=== PATIENT | male | born 1980 | race Hispanic/Latino ===

== ENCOUNTER 2021-04-01 19:35 | Emergency (ER) | payer BC ==
--- OUTSIDE RECORDS SUMMARY | 2021-04-01 19:40 | XMS REPORT | Continuity of Care Document ---
:1980 Author Organization [facility] t Address [address] [place] [address] Care Team Providers Name Role Phone CANDIE CASTILLO MD Primary Care Physician Unavailable Lynn Campbell Attending Clinician Unavailable TIMOTHY SHAW Attending Clinician Unavailable TEODORO MARLEY Attending Clinician Unavailable Sudheer GRIMES Attending Clinician Unavailable VAL Attending Clinician Unavailable KATE Attending Clinician Unavailable Enrico Moran Jr Attending Clinician Sergio English Attending Clinician Adrian Admitting Clinician Unavailable KATE Admitting Clinician Unavailable Enrico Moran Jr Admitting Clinician Payers Payer Name Policy Type Policy Number Effective Date Expiration Date S shanna [facility] [id number] 2018 [facility] 00:00:00 - [facility] [id number] [facility] [id number] [facility] [id number] 2014 [facility] Problems Condition Condition Condition Status Onset Resolution Last Treating Co mments Source Name Details Category Date Date Treatment Clinician Date EARLY SBO Diagnosis Active 2016-04-08 Memoria 8 12:36:00 l EARLY 00:00: [place] SBO 00 Active 04/08/2016 [place] INCARCERAT Diagnosis Active 2016-04-20 Memoria ED HERNIA 04-08 21:58:00 l 00:00: [place] INCARCERAT 00 ED HERNIA Active 04/08/2016 [facility] ABD PAIN; Diagnosis Active 2013-082015-01-06 [facility] HERNIA 0- 16:05:00 l ABD 00:00: [place] PAIN; 00 HERNIA Active 06/04/2014 [facility] Retention Problem Active 2016-04-13 Me moria of urine 00:53:01 l (disorder) Ajay n Retention of urine (disorder) Active Problem 04/13/2016 [facility] Hernia of Problem Active 2016-04-13 Me moria anterior 00:53:01 l abdominal Hernia Jeni nn wall of (disorder) anterior abdominal wall (disorder) Active Problem 04/13/2016 [facility] BI Diagnosis Active 2016-04-20 Mem oria INGUINAL 21:58:00 l HERNIA, W BI [place] OBST, W/O INGUINAL GANGRENE HERNIA, W OBST, W/O GANGRENE Active [place] History of Problem Resolve 2016-04-13 Memoria - d 00:53:01 l abdominal History Herm skylar hernia of - (context-d abdominal ependent hernia category) (context-d ependent category) Resolved Problem 04/13/2016 [facility] Pain Problem Active 2016-04-13 Memor ia (finding) 00:53:01 l Pain [place] (finding) Active Problem 04/13/2016 [facility] Surgery Problem Active 2016-04-13 Karlos tonya (qualifier 00:53:01 l value) Surgery [place] (qualifier value) Active Problem 04/13/2016 [facility] Allergies, Adverse Reactions, Alerts Allergy Allergy Status Severity Reaction(s) Onset Inactive Treating Comm ents Source Name Type Date Date Clinician No Known DA Active [facility] Allergie 1-13 Minoo gabriel 00:00: e 00 [facility] Social History Social Habit Start Date Stop Date Quantity Comments Source Sex Assigned At [facility] Cigarettes smoked 2017-09-27 2017-09-27 [facility] - current (pack per 00:00:00 00:00:00 [facility] day) - Reported Tobacco use and 2017-09-27 2017-09-[address] [facility] - exposure 00:00:00 00:00:00 [facility] Alcohol intake 2017-09-27 2017-09-27 Current [facility] Panchito es - 00:00:00 00:00:00 non-drinker of Medical Ce nter alcohol (finding) Social History 2016-04-08 2016-04-08 [facility] 17:44:07 17:44:07 Smoking Status Start Date Stop Date Source Light tobacco smoker 2017-09-27 00:00:00 [facility] Medications Ordered Filled Start Stop Current Ordering Indication Dosage Frequency Signature Comments Components Source Medication Medication Date Date Medication? Clinician (SIG) Name Name Dicyclomine Dicyclomine Yes Angie A Every 6 [facility]. Hcl 10 Mg Hcl 10 Mg 6-20 Sydney Mathews Hours for [facility] - Capsule Capsule 00:00: Abdominal Pa tient 00 [facility] Acetaminoph Yes See Memori a en 325 MG / 8-27 Instructio l Hydrocodone 19:59: ns, take [place] Bitartrate 00 1-2 tabls 5 MG Oral every 4 to Tablet 6 hours as [[employer] needed for 5/325] pain, # 30 tab, 0 Refill(s) Acetaminoph Yes See Memori a en 325 MG / 8-27 Instructio l Hydrocodone 19:59: ns, take He rmann Bitartrate 00 1-2 tabls 5 MG Oral every 4 to Tablet 6 hours as [[employer] needed for 5/325] pain, # 30 tab, 0 Refill(s) Acetaminoph No Notes: Karlos tonya en 325 MG / -27 (Same as: l Hydrocodone 18:45: [employer] Jeni nn Bitartrate 00 325/5) Do 5 MG Oral not exceed Tablet 4gm/day of [[employer] acetaminop 5/325] hen. Acetaminoph No Notes: Karlos tonya en 325 MG / 8-27 (Same as: l Hydrocodone 18:45: [employer] Jeni nn Bitartrate 00 325/5) Do 5 MG Oral not exceed Tablet 4gm/day of [[employer] acetaminop 5/325] hen. Flomax No Notes: Memoria - (Same As: l 22:00: Flomax) [place] "Do Not Crush" Flomax No Notes: Memoria 8- (Same As: l 22:00: Flomax) [place] "Do Not Crush" pneumococca No Notes: Karlos tonya l capsular 04-09 (Same as: l polysacchar 14:00: Pneumovax H ermann lewis type 1 23) vaccine / Refrigerat pneumococca e l capsular polysacchar lewis type 10A vaccine / pneumococca l capsular polysacchar lewis type 11A vaccine / pneumococca l capsular polysacchar lewis type 12F vaccine / pneumococca l capsular polysacchar pneumococca No Notes: Karlos tonya l capsular 04-09 (Same as: l polysacchar 14:00: Pneumovax H ermann lewis type 1 23) vaccine / Refrigerat pneumococca e l capsular polysacchar lewis type 10A vaccine / pneumococca l capsular polysacchar lewis type 11A vaccine / pneumococca l capsular polysacchar lewis type 12F vaccine / pneumococca l capsular polysacchar ceFAZolin No Notes: Memori a (SCIP) + 04-09 (Same As: l sodium 05:00: Ancef, [place] chloride 00 Kefzol) 0.9% INJ 100 mL MEDICATION WASTE Product Size: 1000 mg Product Wasted: ___ mg ceFAZolin No Notes: Memori a (SCIP) + - (Same As: l sodium 05:00: Ancef, [place] chloride 00 Kefzol) 0.9% INJ 100 mL MEDICATION WASTE Product Size: 1000 mg Product Wasted: ___ mg Famotidine No Notes: Memor ia 04-09 (Same as: l 02:00: Pepcid) [place] 00 Famotidine No Notes: Memor ia 04-09 (Same as: l 02:00: Pepcid) [place] 00 Ofirmev No Notes: Memoria 8- Infuse l 23:00: over 15 [place] 00 minutes Do not exceed 4gm/day of acetaminop hen MEDICATION WASTE Product Size: 1000 mg Product Wasted: ___ mg Ofirmev No Notes: Memoria 04-08 Infuse l 23:00: over 15 [place] 00 minutes Do not exceed 4gm/day of acetaminop hen MEDICATION WASTE Product Size: 1000 mg Product Wasted: ___ mg Ondansetron No 4 mg, Memor ia 04-08 Route: l 22:41: IVP, ONCE, Dosing Weight 116.818, kg, PRN Nausea & Vomiting, Start date: 04/08/16 17:41:00 CDT Acetaminoph No 1,000 mg, M emoria en 04-08 Route: PO, l 22:41: Drug form: TAB, ONCE, Dosing Weight 116.818, kg, PRN Pain Score 1-3, Start date: 04/08/16 17:41:00 CDT, Duration: 1 doses or times, Stop date: Limited # of times Flumazenil No 0.2 mg, Karlos tonya 04-08 Route: l 22:41: IVP, PRN, Dosing Weight 116.818, kg, PRN Benzodiaze pine Reversal, Initial dose, Start date: 04/08/16 17:41:00 CDT, Duration: 30 day, Stop date: 05/08/16 17:40:00 CDT Naloxone No 0.4 mg, Memori a 04-08 Route: l 22:41: IVP, Q2MIN, Dosing Weight 116.818, kg, PRN Narcotic Reversal, Start date: 04/08/16 17:41:00 CDT, Duration: 8 doses or times, Stop date: Limited # of times Fentanyl No 50 Memoria 04-08 microgram, l 22:41: Route: IVP, Q5Min, Dosing Weight 116.818, kg, PRN Pain Score 7-10, Start date: 04/08/16 17:41:00 CDT, Duration: 2 doses or times, Stop date: Limited # of times Hydromorpho 2016-0 No 0.5 mg, Mem oria ne 04-08 Route: l 22:41: IVP, [place] 00 Q5Min, Dosing Weight 116.818, kg, PRN Pain Score 7-10, Start date: 04/08/16 17:41:00 CDT, Duration: 4 doses or times, Stop date: Limited # of times Oxycodone 2015-0 No 10 mg, Memori a 04-08 Route: PO, l 22:41: Drug form: [place] 00 TAB, Q4H, Dosing Weight 116.818, kg, PRN Pain Score 7-10, Start date: 04/08/16 17:41:00 CDT, Duration: 30 day, Stop date: 05/08/16 17:40:00 CDT Meperidine 2015-0 No 12.5 mg, Mem oria 04-08 Route: l 22:41: IVP, [place] 00 Q30Min, Dosing Weight 116.818, kg, PRN Other -See Comment, For shivering, Start date: 04/08/16 17:41:00 CDT, Duration: 2 doses or times, Stop date: Limited # of times Ondansetron 2015-0 No 4 mg, Memor ia 04-08 Route: l 22:41: IVP, ONCE, Dosing Weight 116.818, kg, PRN Nausea & Vomiting, Start date: 04/08/16 17:41:00 CDT Acetaminoph 2016-0 No 1,000 mg, M emoria en 04-08 Route: PO, l 22:41: Drug form: [place] 00 TAB, ONCE, Dosing Weight 116.818, kg, PRN Pain Score 1-3, Start date: 04/08/16 17:41:00 CDT, Duration: 1 doses or times, Stop date: Limited # of times Flumazenil 2016-0 No 0.2 mg, Karlos tonya 04-08 Route: l 22:41: IVP, PRN, [place] 00 Dosing Weight 116.818, kg, PRN Benzodiaze pine Reversal, Initial dose, Start date: 04/08/16 17:41:00 CDT, Duration: 30 day, Stop date: 05/08/16 17:40:00 CDT Naloxone 2016-0 No 0.4 mg, Memori a 04-08 Route: l 22:41: IVP, [place] 00 Q2MIN, Dosing Weight 116.818, kg, PRN Narcotic Reversal, Start date: 04/08/16 17:41:00 CDT, Duration: 8 doses or times, Stop date: Limited # of times Fentanyl 2016-0 No 50 Memoria 8-25 microgram, l 22:41: Route: [place] 00 IVP, Q5Min, Dosing Weight 116.818, kg, PRN Pain Score 7-10, Start date: 04/08/16 17:41:00 CDT, Duration: 2 doses or times, Stop date: Limited # of times Hydromorpho 2016-0 No 0.5 mg, Mem oria ne 04-08 Route: l 22:41: IVP, [place] 00 Q5Min, Dosing Weight 116.818, kg, PRN Pain Score 7-10, Start date: 04/08/16 17:41:00 CDT, Duration: 4 doses or times, Stop date: Limited # of times Oxycodone 2016-0 No 10 mg, Memori a 04-08 Route: PO, l 22:41: Drug form: [place] 00 TAB, Q4H, Dosing Weight 116.818, kg, PRN Pain Score 7-10, Start date: 04/08/16 17:41:00 CDT, Duration: 30 day, Stop date: 05/08/16 17:40:00 CDT Meperidine 2016-0 No 12.5 mg, Mem oria 04-08 Route: l 22:41: IVP, [place] 00 Q30Min, Dosing Weight 116.818, kg, PRN Other -See Comment, For shivering, Start date: 04/08/16 17:41:00 CDT, Duration: 2 doses or times, Stop date: Limited # of times hydromorpho 2015-0 No Route: IV, Memoria ne (ANES) 04-08 Drug form: l 22:27: INJ, ONCE, Stop date: 04/08/16 17:27:00 CDT neostigmine 2015-0 No Route: IV, Memoria (ANES) 04-08 Drug form: l 22:27: INJ, ONCE, Stop date: 04/08/16 17:27:00 CDT glycopyrrol No Route: IV, Memoria ate (ANES) 04-08 Drug form: l 22:27: INJ, ONCE, Stop date: 04/08/16 17:27:00 CDT hydromorpho No Route: IV, Memoria ne (ANES) 04-08 Drug form: l 22:27: INJ, ONCE, Stop date: 04/08/16 17:27:00 CDT neostigmine No Route: IV, Memoria (ANES) 04-08 Drug form: l 22:27: INJ, ONCE, Stop date: 04/08/16 17:27:00 CDT glycopyrrol No Route: IV, Memoria ate (ANES) 04-08 Drug form: l 22:27: INJ, ONCE, Stop date: 04/08/16 17:27:00 CDT Ondansetron No Notes: Karlos tonya 04-08 (Same as: l 22:25: Zofran) [place] 00 MEDICATION WASTE Product Size: 4 mg Product Wasted: ___ mg Morphine No Notes: Memoria 04-08 (Same l 22:25: as:MORPhin [place] 00 e Sulfate) Acetaminoph No Notes: Karlos tonya en 325 MG / 04-08 (Same as: l Hydrocodone 22:25: [employer] Jeni nn Bitartrate 00 325/5) Do 5 MG Oral not exceed Tablet 4gm/day of acetaminop hen. Ondansetron No Notes: Karlos tonya 25 (Same as: l 22:25: Zofran) [place] 00 MEDICATION WASTE Product Size: 4 mg Product Wasted: ___ mg Morphine No Notes: Memoria 25 (Same l 22:25: as:MORPhin [place] 00 e Sulfate) Acetaminoph No Notes: Karlos tonya en 325 MG / 04-08 (Same as: l Hydrocodone 22:25: [employer] Jeni nn Bitartrate 00 325/5) Do 5 MG Oral not exceed Tablet 4gm/day of acetaminop hen. lidocaine No Route: IV, Me moria (ANES) 8 Drug form: l 21:38: INJ, ONCE, Stop date: 04/08/16 16:38:00 CDT midazolam No Route: IV, Me moria (ANES) 8 Drug form: l 21:38: SOLN, ONCE, Stop date: 04/08/16 16:38:00 CDT ondansetron No Route: IV, Memoria (ANES) 04-08 Drug form: l 21:38: INJ, ONCE, Stop date: 04/08/16 16:38:00 CDT acetaminoph No Route: IV, Memoria en (ANES) 04-08 Drug form: l 21:38: INJ, ONCE, Stop date: 04/08/16 16:38:00 CDT rocuronium No Route: IV, M emoria (ANES) 04-08 Drug form: l 21:38: INJ, ONCE, Stop date: 04/08/16 16:38:00 CDT cefOXitin No Route: IV, Me moria (ANES) 04-08 Drug form: l 21:38: INJ, ONCE, Stop date: 04/08/16 16:38:00 CDT fentaNYL No Route: IV, Mem oria (ANES) 04-08 Drug form: l 21:38: INJ, ONCE, Stop date: 04/08/16 16:38:00 CDT propofol No Route: IV, Mem oria (ANES) 8 Drug form: l 21:38: INJ, ONCE, Stop date: 04/08/16 16:38:00 CDT lidocaine No Route: IV, Me moria (ANES) 8- Drug form: l 21:38: INJ, ONCE, Stop date: 04/08/16 16:38:00 CDT midazolam No Route: IV, Me moria (ANES) 8 Drug form: l 21:38: SOLN, ONCE, Stop date: 04/08/16 16:38:00 CDT ondansetron No Route: IV, Memoria (ANES) 04-08 Drug form: l 21:38: INJ, ONCE, Stop date: 04/08/16 16:38:00 CDT acetaminoph No Route: IV, Memoria en (ANES) 04-08 Drug form: l 21:38: INJ, ONCE, Stop date: 04/08/16 16:38:00 CDT rocuronium No Route: IV, M emoria (ANES) 04-08 Drug form: l 21:38: INJ, ONCE, Stop date: 04/08/16 16:38:00 CDT cefOXitin No Route: IV, Me moria (ANES) 04-08 Drug form: l 21:38: INJ, ONCE, Stop date: 04/08/16 16:38:00 CDT fentaNYL No Route: IV, Mem oria (ANES) 04-08 Drug form: l 21:38: INJ, ONCE, Stop date: 04/08/16 16:38:00 CDT propofol No Route: IV, Mem oria (ANES) 04-08 Drug form: l 21:38: INJ, ONCE, Stop date: 04/08/16 16:38:00 CDT LR 1000 mL No Route: IV, M emoria INJ (ANES) 04-08 Total l 20:48: Volume: [place] 00 1,000, Start date: 04/08/16 15:48:00 CDT, Stop date: 04/08/16 16:48:00 CDT LR 1000 mL No Route: IV, M emoria INJ (ANES) 04-08 Total l 20:48: Volume: [place] 00 1,000, Start date: 04/08/16 15:48:00 CDT, Stop date: 04/08/16 16:48:00 CDT Calcium No 1,000 mL, Memor ia Chloride 04-08 Rate: 25 l 0.0014 20:40: ml/hr, [place] MEQ/ML / 00 Infuse Potassium over: 40 Chloride hr, Route: 0.004 IV, Dosing MEQ/ML / Weight Sodium 116.818 Chloride kg, Total 0.103 Volume: MEQ/ML / 1,000, Sodium Start Lactate date: 0.028 25/16 MEQ/ML 15:40:00 Injectable CDT, Solution Duration: 30 day, Stop date: 05/08/16 15:39:00 CDT Calcium No 1,000 mL, Memor ia Chloride 04-08 Rate: 25 l 0.0014 20:40: ml/hr, [place] MEQ/ML / 00 Infuse Potassium over: 40 Chloride hr, Route: 0.004 IV, Dosing MEQ/ML / Weight Sodium 116.818 Chloride kg, Total 0.103 Volume: MEQ/ML / 1,000, Sodium Start Lactate date: 0.028 25/16 MEQ/ML 15:40:00 Injectable CDT, Solution Duration: 30 day, Stop date: 05/08/16 15:39:00 CDT Cefoxitin No Notes: Memori a 8-25 (Same As: l 20:00: Mefoxin) [place] 00 MEDICATION WASTE Product Size: 2000 mg Product Wasted: ___ mg Cefoxitin No Notes: Memori a 8-25 (Same As: l 20:00: Mefoxin) [place] 00 MEDICATION WASTE Product Size: 2000 mg Product Wasted: ___ mg Acetaminoph No 1 tab, PO, Memoria en 325 MG / 8-25 Q6H, PRN l Hydrocodone 18:12: Pain Score [place] Bitartrate 00 7-10, 0 5 MG Oral Refill(s) Tablet [[employer] 5/325] Acetaminoph No 1 tab, PO, Memoria en 325 MG / 8-25 Q6H, PRN l Hydrocodone 18:12: Pain Score [place] Bitartrate 00 7-10, 0 5 MG Oral Refill(s) Tablet [[employer] 5/325] Sodium No 1,000 mL, Memori a Chloride 8-25 Rate: 125 l 0.154 17:38: ml/hr, [place] MEQ/ML 00 Infuse Injectable over: 8 Solution hr, Route: IV, Dosing Weight 108.182 kg, Total Volume: 1,000, Start date: 04/08/16 12:38:00 CDT, Duration: 30 day, Stop date: 05/08/16 12:37:00 CDT Ondansetron 2016-0 No Notes: Karlos tonya 8-25 (Same as: l 17:38: Zofran) [place] 00 MEDICATION WASTE Product Size: 4 mg Product Wasted: ___ mg Saline 2015- No Notes: Memoria Flush 0.9% 8-25 Same as: l 17:38: BD [place] 00 Posiflush Sterile Dilaudid 2016-0 No 0.5 mg, Memori a 8-25 0.5 mL, l 17:38: Route: [place] 00 IVP, Drug form: INJ, Q3H, Dosing Weight 108.182, kg, PRN Pain Score 7-10, Start date: 04/08/16 12:38:00 CDT, Duration: 30 day, Stop date: 05/08/16 12:37:00 CDT Sodium 2016-0 No 1,000 mL, Memori a Chloride 8-25 Rate: 125 l 0.154 17:38: ml/hr, [place] MEQ/ML 00 Infuse Injectable over: 8 Solution hr, Route: IV, Dosing Weight 108.182 kg, Total Volume: 1,000, Start date: 04/08/16 12:38:00 CDT, Duration: 30 day, Stop date: 05/08/16 12:37:00 CDT Ondansetron 2015-0 No Notes: Karlos tonya 8-25 (Same as: l 17:38: Anahian) [place] 00 MEDICATION WASTE Product Size: 4 mg Product Wasted: ___ mg Saline 2015-0 No Notes: Memoria Flush 0.9% 8-25 Same as: l 17:38: BD [place] 00 Posiflush Sterile Dilaudid 2016-0 No 0.5 mg, Memori a 8-25 0.5 mL, l 17:38: Route: [place] 00 IVP, Drug form: INJ, Q3H, Dosing Weight 108.182, kg, PRN Pain Score 7-10, Start date: 04/08/16 12:38:00 CDT, Duration: 30 day, Stop date: 05/08/16 12:37:00 CDT Ibuprofen Ibuprofen Yes [address] [facility] - 200 Mg Tab 200 Mg Tab [facility] Immunizations Ordered Immunization Filled Immunization Date Status Commen ts Source Name Name pneumococcal 2016-04-09 Completed [facility] 23-valent vaccine 23:34:00 [place] pneumococcal 2016-04-09 Completed [facility] 23-valent vaccine 23:34:00 [place] Vital Signs Vital Name Observation Time Observation Value Comments Source Respitory Rate 2016-04-10 17:08:00 Memori al [place] Systolic (mm Hg) 2016-04-10 17:08:00 Karlos rial [place] Diastolic (mm Hg) 2016-04-10 17:08:00 Mem orial [place] Heart Rate 2016-04-10 17:08:00 [facility] [place] Temperature Oral (F) 2016-04-10 17:08:00 98.8 F [facility] [place] Heart Rate 2016-04-10 13:12:00 [facility] [place] Systolic (mm Hg) 2016-04-10 13:12:00 Karlos rial [place] Diastolic (mm Hg) 2016-04-10 13:12:00 Mem orial [place] Temperature Oral (F) 2016-04-10 13:12:00 98.6 F [facility] [place] Respitory Rate 2016-04-10 12:25:00 Memori al [place] Heart Rate 2016-04-10 04:37:00 [facility] [place] Systolic (mm Hg) 2016-04-10 04:37:00 Karlos rial [place] Diastolic (mm Hg) 2016-04-10 04:37:00 Mem orial [place] Temperature Oral (F) 2016-04-10 04:37:00 98.7 F [facility] [place] Respitory Rate 2016-04-10 01:20:00 Memori al [place] Height 2016-04-08 17:46:00 187.96 cm [facility] [place] Weight 2016-04-08 17:46:00 [facility] [place] BMI Calculated 2016-04-08 17:46:00 Memori al [place] Procedures Procedure Date / Time Performed Performing Clinician Sourc e RPR S/N/AX/GEN/TRNK 2019-01-05 00:00:[address] [facility] - 2.5CM/< [facility] Ankle fusion [facility] Repair of recurrent [facility] umbilical hernia Plan of Care Planned Activity Planned Date Details Comments Source Future Scheduled 2028-08-03 DTAP/TDAP/TD VACCINES [facility] - Test 00:00:00 (2 - Td) [code = Medical [facility] ter DTAP/TDAP/TD VACCINES (2 - Td)] Future Scheduled 2020-08-[address] [facility] - Test 00:00:00 (12+) [code = [facility] DEPRESSION SCREENING (12+)] Future Scheduled 2020-04-[address] [facility] - Test 00:00:00 (#1) [code = [facility] INFLUENZA VACCINE (#1)] Future Scheduled [address] [facility] - Test 00:00:00 (procedure) [code = [facility] [id number]] Future Scheduled 2000 HEPATITIS C SCREENING [facility] - Test 00:00:00 [code = HEPATITIS C [facility] SCREENING] Encounters Start End Encounter Admission Attending Care Care Encounter Source Date/Time Date/Time Type Type Clinicians Facility Department ID 2021-03-24 2021-03-24 [id number] [facility] 15:25:00 15:25:00 [id number] [facility] 2019-03-25 2019-03-25 [facility] [id number] [facility] 21:06:00 23:10:00 Emergency TIMOTHY 03 [facility] - Room Patient s [facility] 2019-02-01 2019-02-01 [facility] [id number] 13:23:00 15:57:00 Emergency ANGIE 18 [facility] - Room Patient s [facility] 2019-01-13 2019-01-13 [facility]ed [facility] [id number] 21:30:00 23:34:00 Emergency LANCE 62 [facility] - Room Patient s [facility] 2019-01-05 2019-01-06 Departed [facility] [id number] 23:39:00 00:47:00 Emergency 79 [facility] - Room Patient s [facility] 2018-01-23 2018-01-23 Departed [facility] [id number] [facility] St. 17:52:00 20:25:00 Emergency 52 [facility] - Room [facility] 2016-04-09 2016-04-[address] [facility] [id number] Memoria 10:30:00 20:25:00 r [place] 38 [facility] 2016-04-09 2016-04-[address] [facility] [id number] Memoria 10:30:00 20:25:00 r [place] 38 [facility] 2016-04-09 2016-04-10 Outpatient ROBERT Moran [facility] [id number] 05:30:00 15:25:00 Willem Weston Andreea 2014-06-06 2014-06-[address] [facility] [id number] Memoria 22:04:00 04:59:00 r [place] 00 [facility] 2014-06-06 2014-06-07 Outpatient [facility] [id number] Memoria 22:04:00 04:59:00 r [place] 00 [facility] 2014-06-06 2014-06-06 Outpatient English, [id number] 17:04:00 23:59:00 Dhruvil [id number] Rashmikant [id number] Results Test Description Test Time Test Comments Results Result Comments Source SURGICAL SPECIMENS 2021-03-25 16:03:00 Test Item Value Reference Range Interpretation Comme nts SURGICAL RUN SPECIMENS DATE: 03/25/21 [facility] - LAB PAGE 1 RUN (test code TIME: 1603 Specimen Inquiry RUN USER: INTERFACE = SURG) WHITNEY ENT: MAGDALENA ROMERO LOC: [place] U #: [id number] AGE/SX: 40/M ROOM: RE03/24/21REG DR: Lynn Campbell MD : 82 BED : DIS: STATUS: REG REF TLOC: SPEC #: [id number] CREDIT CONTROL OFFICER: 03/24/21 [facility]: [id number] WHIT: SUBM DR: Lynn Campbell MD ENTERED: 03/24/21 SP TYPE: KATHERINE BENITEZ OTHR DR: ORDERED: PATHGM3, PATH SPEC, H E STAI N TISSUES: A. LIPOMA - Multiple li pomas [right forearm,abdomen,back] CLINICAL HISTORY Diagnosis/Clinical Data: Lan k lipoma, abdominal lipomas, right forearm lipomas Operative Procedure: Excision lipomas, back, abdominal wall, right forearm FINAL DIAGNOSIS Soft tissue, right FA, abdominal, back, excision: Fragments of angiolipoma Electronically signed by: Abebe Judd MD GROSS DESCRIPTION Received in formalin labeled "multiple lipomas (right FA, abdominal , back)" is a 5.0 x 5.0 x 1.2 cm aggregate of ivan-yellow, encapsulated adipose tissu e fragments. The cut surfaces are ivan-yellow, glistening, and homogenous. Formulation Scientist sections are submitted in A1-A3. TR 03/24/2021 05:59 PM MICROSCOPIC DESCRIPTION S ections show fragments of well-circumscribed soft tissue mass is composed of mature adipocy ivan and a capillary vascular proliferation, compatible with angiolipoma. No malignancy is identified. Signed SIGNATURE ON FILE Abebe Judd MD 03/25/21 1603 END OF REPORT SURGICAL [id number] 14:46:00 RUN DATE: 04/28/20 [facility] PAGE 1 RUN TIME: 1447 Specimen Inquiry RUN USER: INTERFACE PATIENT: MAGDALENA ROMERO LOC: ILE[place] U #: [id number] AGE/SX: 40/M ROOM: RE04/25/20REG DR: Lynn Campbell MD : 82 BED: DIS: STATUS: REG REF TLOC: SPEC #: [id number] RECD: 04/25/20 STATUS: [place] [facility] #: [id number] WHIT: 04/25/20-[address]: Lynn Campbell MD ENTERED: 04/25/20 SP TYPE: SURG OTHR DR: ORDERED: PATHGM3, PATH SPEC, H E STAIN TISSUES: A. LIPOMA - Back and left arm lipomas CLINICAL HISTORY Operative Procedure: Excision of multiple left side lipomas FINAL DIAGNOSIS Soft tissues, back and left arm, multiple excisions: Multiple lipomas and angiolipomas. Electronically signed by: Luis Daniel Contreras MD 04/28/2020 GROSS DESCRIPTION Received in formalin labeled "back and left arm lipomas" are seven unoriented portions of ivan-yellow, encapsulated adiposetissue ranging from 1.7-2.5 x 1.5 x 0.5 cm in greatest dimension. The cut surfaces are ivan-yellow and glistening. Formulation Scientist sections are submitted in A1-A3. TR 04/25/2020 06:24 PM MICROSCOPIC DESCRIPTION Sections show multiple lipomas and angiolipomas. No distinct evidence of malignancy is identified. Signed SIGNATURE ON FILE Luis Daniel Contreras MD 04/28/20 1446 END OF REPORT - CT ABD PELVIS W/O [id number] 04:46:00 Name: MAGDALENA ROMERO [facility] : 1980 Age/S: 39 / M [address] [facility] Unit #: [id number] Loc: Domonique Lemus [address] Phys: Elizabeth Vincent MD Acct: [id number] Dis Date: Status: REG ER PHONE #: [phone] Exam Date: 04/22/2019426 FAX #: [phone] Reason: left sided abd pain EXAMS: CPTCODE: [id number] CT ABD PELVIS W/O CONT 56459 AFTER HOURSSERVICE ON: 04/22/2019 4:[address] Scan of the Abdomen and Pelvis Without Contrast Location Code M12 History: left sided abd pain Technique: Axial and reconstructed coronal scans were performed on a helical scanner pre oral and IV contrast. Study is limited secondary to lack of oral and IV contrast. One or more of the following dose reduction techniques were used: Automated exposure control, adjustment of the mA and/or kV according to patient size, and/or utilization of iterative reconstruction technique. Findings: LIVER: No significant findings. GALLBLADDER/BILIARY: Gallbladder is surgically absent. PANCREAS: No significant findings. SPLEEN: There ispersistent splenomegaly compared to prior CT of 08/27/2015. ADRENALS: No significant findings. KIDNEYS: No nephrolithiasis or hydronephrosis. BLADDER: No significant findings. GASTROINTESTINAL: Diverticular changes noted in the sigmoid colon without evidence of diverticulitis. Small bowel loops are unremarkable. There is no bowel obstruction or free air.The appendix is not visualized. The appendix is unremarkable. . IMPRESSION: No acute findings in the abdomen or pelvis. Stable splenomegaly at 0446 Reported and signed by: Marcos Vargas M.D. PAGE 1 Signed Report (CONTINUED) Name: MAGDALENA ROMERO [facility] : 1980 Age/S: 39 / M [address] Unit #: [id number] Loc: Domonique Lemus [address] Phys: Elizabeth Vincent MD Acct: [id number] Dis Date: Status: REG ER PHONE #: [phone] Exam Date: 04/22/2019426 FAX #: [phone] Reason: left sided abd pain EXAMS: CPT CODE: [id number] CT ABD PELVIS W/O CONT 35710 <Continued> CC: Candie Castillo Technologist:SURINDER PERRIN RT(R),RDMS,CT CTDI: DLP: Trnscb Date/Time: 04/22/2019 (445) [id number] OrigPrint D/T: S: 04/22/2019 (044) PAGE 2 Signed ReportURINALYSIS [id number] 04:22:00 Test Item Value Reference Range Interpretation Comments UA COLOR (test code = YELLOW YELLOW COLU) UA APPEARANCE (test code CLEAR CLEAR = APPU) UA GLUCOSE DIPSTICK (test norm mg/dL NEGATIVE code = DGLUU) UA BILIRUBIN DIPSTICK NEGATIVE mg/dL NEGATIVE (test code = BILU) UA KETONE DIPSTICK (test neg mg/dL NEGATIVE code = KETU) UA SPECIFIC GRAVITY (test 1.020 1.001-1.035 code = SGU) UA BLOOD DIPSTICK (test 25 (1+) Navin/uL NEGATIVE A code = ALEX) UA PH DIPSTICK (test code 6.0 5.0-8.0 = MATTHEW) UA PROTEIN DIPSTICK (test 30 (1+) mg/dL Neg-15 A code = PROU) UA UROBILINIOGEN DIPSTICK 4 mg/dL (2+) mg/dL 0.0-0.2 A (test code = URO) UA NITRITE DIPSTICK (test NEGATIVE NEGATIVE code = CONCEPCIÓN) UA LEUKOCYTE ESTERASE 25 Luz Marina/uL (Trace) uL NEGATIVE A DIPSTICK (test code = LEUU) UA WBC (test code = WBCU) 0-5 per HPF 0-5 UA RBC (test code = RBCU) 0-3 per HPF 0-5 UA EPITHELIAL CELLS (test Rare (0-1/hpf) per Few code = EPIU) HPF UA BACTERIA (test code = FEW per HPF NONE BACU) UA MUCUS (test code = FEW per LPF NONE-FEW MUCU) Urine Source? Clean CatchDRUGS OF ABUSE SCREEN [id number] 04:22:00 Test Item Value Reference Range Interpretation Comments URN COCAINE (test code = COCAURN) NEGATIVE NEGATIVE URN CANNABINOIDS (test code = NEGATIVE NEGATIVE CANNABURN) URN AMPHETAMINE (test code = NEGATIVE NEGATIVE AMPHETURN) URN BARBITURATE (test code = NEGATIVE NEGATIVE BARBITURN) URN BENZODIAZEPINE (test code = NEGATIVE NEGATIVE BENZOURN) URN OPIATES (test code = OPIATURN) NEGATIVE NEGATIVE URN PHENCYCLIDINE (PCP) (test code = NEGATIVE NEGATIVE PHENCURN) Urine Source? Clean CatchBASIC METABOLIC [id number] 04:22:00 Test Item Value Reference Range Interpretation Comments SODIUM (test code = 142 mmol/L 136-145 N NA) POTASSIUM (test code = 3.9 mmol/L 3.5-5.1 N K) CHLORIDE (test code = 106 mmol/L 101-109 N CL) CARBON DIOXIDE (test 28.9 mmol/L 21-32 N code = CO2) ANION GAP (test code = 11 mmol/L 10-20 N GAP) GLUCOSE (test code = 107 mg/dL 74-106 H GLU) BLOOD UREA NITROGEN 16 mg/dL 3-21 N (test code = BUN) GLOMERULAR FILTRATION > 60 mL/min >=60 Estima laney GFR by RATE (test code = GFR) using Modified MDRD formula.Chronic kidney disease is defined as ei er kidney damageor GFR <60 mL/min/1.73 m2 for >3 months. CREATININE (test code 0.95 mg/dL 0.55-1.3 N = CREAT) BUN/CREATININE RATIO 16.8 10-20 N (test code = BUN/CREA) CALCIUM (test code = 8.7 mg/dL 8.4-10.2 N CA) HEPATIC FUNCTION [id number] 04:22:00 Test Item Value Reference Range Interpretation Comments TOTAL PROTEIN (test 7.5 g/dL 6.5-8.4 N code = PROT) ALBUMIN (test code = 4.3 g/dL 3.4-4.8 N ALB) GLOBULIN (test code = 3.2 G/DL 1-10 N GLOB) ALBUMIN/GLOBULIN RATIO 1.34 RATIO 0.75-1.50 N (test code = A/G) BILIRUBIN TOTAL (test 0.50 mg/dL 0.0-1.0 N code = BILT) BILIRUBIN DIRECT (test 0.10 mg/dL 0.0-0.30 N code = BILD) SGOT/AST (test code = 41 U/L 6-32 H AST) SGPT/ALT (test code = 63 U/L 12-78 N Note: Change in ALT) REFERENCE RANGE due to new reagent method. ALKALINE PHOSPHATASE 133 U/L 38-126 H TOTAL (test code = ALKP) [id number] 04:22:00 Test Item Value Reference Range Interpretation Comments LIPASE (test code = LIP) 142 U/L 128-270 N BASIC METABOLIC [id number] 04:21:00 Test Item Value Reference Range Interpretation Comments SODIUM (test code = 142 mmol/L 136-145 N NA) POTASSIUM (test code = 3.9 mmol/L 3.5-5.1 N K) CHLORIDE (test code = 106 mmol/L 101-109 N CL) CARBON DIOXIDE (test 28.9 mmol/L 21-32 N code = CO2) ANION GAP (test code = 11 mmol/L 10-20 N GAP) GLUCOSE (test code = 107 mg/dL 74-106 H GLU) BLOOD UREA NITROGEN 16 mg/dL 3-21 N (test code = BUN) GLOMERULAR FILTRATION > 60 mL/min >=60 Estima laney GFR by RATE (test code = GFR) using Modified MDRD formula.Chronic kidney disease is defined as [facility] kidney damageor GFR <60 mL/min/1.73 m2 for >3 months. CREATININE (test code 0.95 mg/dL 0.55-1.3 N = CREAT) BUN/CREATININE RATIO 16.8 10-20 N (test code = BUN/CREA) CALCIUM (test code = 8.7 mg/dL 8.4-10.2 N CA) HEPATIC FUNCTION [id number] 04:21:00 Test Item Value Reference Range Interpretation Comments TOTAL PROTEIN (test code = PROT) gram/dL 6.4-8.2 ALBUMIN (test code = ALB) g/dL 3.4-5.0 GLOBULIN (test code = GLOB) g/dL 2.7-4.2 ALBUMIN/GLOBULIN RATIO (test code = 0.75-1.50 A/G) BILIRUBIN TOTAL (test code = BILT) mg/dL 0.2-1.2 BILIRUBIN DIRECT (test code = BILD) mg/dL 0.0-0.20 SGOT/AST (test code = AST) IUnit/L 15-37 SGPT/ALT (test code = ALT) U/L 10-69 ALKALINE PHOSPHATASE TOTAL (test IUnit/L 45-117 code = ALKP) [id number] 04:21:00 Test Item Value Reference Range Interpretation Comments LIPASE (test code = LIP) Unit/L 144-286 URINALYSIS [id number] 04:13:00 Test Item Value Reference Range Interpretation Comments UA COLOR (test code = YELLOW YELLOW COLU) UA APPEARANCE (test code CLEAR CLEAR = APPU) UA GLUCOSE DIPSTICK (test norm mg/dL NEGATIVE code = DGLUU) UA BILIRUBIN DIPSTICK NEGATIVE mg/dL NEGATIVE (test code = BILU) UA KETONE DIPSTICK (test neg mg/dL NEGATIVE code = KETU) UA SPECIFIC GRAVITY (test 1.020 1.001-1.035 code = SGU) UA BLOOD DIPSTICK (test 25 (1+) Navin/uL NEGATIVE A code = ALEX) UA PH DIPSTICK (test code 6.0 5.0-8.0 = MATTHEW) UA PROTEIN DIPSTICK (test 30 (1+) mg/dL Neg-15 A code = PROU) UA UROBILINIOGEN DIPSTICK 4 mg/dL (2+) mg/dL 0.0-0.2 A (test code = URO) UA NITRITE DIPSTICK (test NEGATIVE NEGATIVE code = CONCEPCIÓN) UA LEUKOCYTE ESTERASE 25 Luz Marina/uL (Trace) uL NEGATIVE A DIPSTICK (test code = LEUU) UA WBC (test code = WBCU) 0-5 per HPF 0-5 UA RBC (test code = RBCU) 0-3 per HPF 0-5 UA EPITHELIAL CELLS (test Rare (0-1/hpf) per Few code = EPIU) HPF UA BACTERIA (test code = FEW per HPF NONE BACU) UA MUCUS (test code = FEW per LPF NONE-FEW MUCU) Urine Source? Clean CatchDRUGS OF ABUSE SCREEN [id number] 04:13:00 Test Item Value Reference Range Interpretation Comments URN COCAINE (test code = COCAURN) NEGATIVE URN CANNABINOIDS (test code = NEGATIVE CANNABURN) URN AMPHETAMINE (test code = AMPHETURN) NEGATIVE URN BARBITURATE (test code = BARBITURN) NEGATIVE URN BENZODIAZEPINE (test code = NEGATIVE BENZOURN) URN OPIATES (test code = OPIATURN) NEGATIVE URN PHENCYCLIDINE (PCP) (test code = NEGATIVE PHENCURN) Urine Source? Clean CatchCBC W/O [id number] 04:10:00 Test Item Value Reference Range Interpretation Comments WHITE BLOOD CELL (test code = 5.9 K/mm3 4.5-12.5 N WBC) RED BLOOD CELL (test code = 4.96 mill/mm3 4.0-5.8 N RBC) HEMOGLOBIN (test code = HGB) 14.8 gram/dL 13.0-17.5 N HEMATOCRIT (test code = HCT) 41.6 % 42.0-52.0 L MEAN CELL VOLUME (test code = 83.9 fL 80-98 N MCV) MEAN CELL HGB (test code = MCH) 29.8 picogram 27.0-33.0 N MEAN CELL HGB CONCETRATION 35.6 gram/dL 33.0-36.0 N (test code = MCHC) RED CELL DISTRIBUTION WIDTH 12.2 % 11.6-16.2 N (test code = RDW) RED CELL DISTRIBUTION WIDTH SD 37.9 fL 37.0-51.0 N (test code = RDW-SD) PLATELET COUNT (test code = 138 K/mm3 150-450 L PLT) MEAN PLATELET VOLUME (test code 9.9 fL 6.7-11.0 N = MPV) ABDOMEN ACUTE SERIES W/PA [id number] 22:51:00 [place] [address] Patient Name: MAGDALENA ROMERO MR #: [id number] : 1980 Age/Sex: 38/M Req #: [id number] Adm Physician: Ordered by: TIMOTHY SHAW MD Report #: [id number] Location: ER Room/Bed: Procedure: [id number] DX/ABDOMEN ACUTE SERIES W/PA CXR Exam Date: 03/25/19 Exam Time: 2129 REPORT STATUS: Signed EXAM: ABDOMEN ACUTE SERIES W/PA CXR, DATE: 03/25/2019 9:30 PM INDICATION: Left-sided abdominal pain. COMPARISON: None FINDINGS: LINES/TUBES: None BOWEL PATTERN: No evidence for obstruction. Moderate volume of stool throughout the colon and rectum. SOFT TISSUES: Cholecystectomy clips. LUNG BASES: Not included BONES: No acute findings. IMPRESSION: Findings may reflect constipation the proper clin ical setting. Signed by: Dr. Flip Wheatley M.D. on 03/25/2019 10:53 PM Dictated By: NAGA WHEATLEY MD, MD 52 Transcribed By: IRVIN on 03/25/192252 COPY TO: TIMOTHY SHAW MDCreatine Kinase MB 2019-03-25 22:03:00 Test Item Value Reference Range Interpretation Comments Creatine Kinase MB (test code = 2.60 0-5.0 22557-0) [facility]Troponin [id number] 22:03:00 Test Item Value Reference Range Interpretation Comments Troponin I (test code = DGK6530) < 0.001 0-0.300 [facility] AustinAmylase [id number] 22:03:00 Test Item Value Reference Range Interpretation Comments Amylase Level (test code = 1798-8) 34 25-125 [facility] AustinLipase2019-08-11 22:03:00 Test Item Value Reference Range Interpretation Comments Lipase (test code = 3040-3) 35 8-78 [facility] AustinUrine [id number] 21:56:00 Test Item Value Reference Range Interpretation Comments Urine WBC (test code = 5821-4) 0-5 0-5 [facility] AustinU[facility] [id number] 21:56:00 Test Item Value Reference Range Interpretation Comments Urine RBC (test code = 00212-1) 0-5 0-5 [facility] AustinU[facility] [id number] 21:56:00 Test Item Value Reference Range Interpretation Comments Urine Bacteria (test code = 26359-1) RARE NONE [facility] AustinU[facility] Epithelial [id number] 21:56:00 Test Item Value Reference Range Interpretation Comments Urine Epithelial Cells (test code = RARE NONE 45931-1) [facility] AustinU[facility] [id number] 21:54:00 Test Item Value Reference Range Interpretation Comments Urine Color (test code = 5778-6) YELLOW YELLOW [facility] AustinU[facility] [id number] 21:54:00 Test Item Value Reference Range Interpretation Comments Urine Clarity (test code = 57420-0) CLEAR CLEAR [facility] AustinUrine Specific [id number] 21:54:00 Test Item Value Reference Range Interpretation Comments Urine Specific Pitkin (test code = 1.020 1.010-1.025 5811-5) [facility] AustinUrine [id number] 21:54:00 Test Item Value Reference Range Interpretation Comments Urine pH (test code = 33048-3) 6 5-7 [facility] AustinU[facility] Leukocyte [id number] 21:54:00 Test Item Value Reference Range Interpretation Comments Urine Leukocyte Esterase (test code NEGATIVE NEGATIVE = 89701-8) [facility] AustinU[facility] [id number] 21:54:00 Test Item Value Reference Range Interpretation Comments Urine Nitrite (test code = 90624-6) NEGATIVE NEGATIVE [facility] AustinUrine [id number] 21:54:00 Test Item Value Reference Range Interpretation Comments Urine Protein (test code = 47380-2) NEGATIVE NEGATIVE [facility] AustinUrine Glucose (UA)2019-03-25 21:54:00 Test Item Value Reference Range Interpretation Comments Urine Glucose (UA) (test code = NEGATIVE NEGATIVE 15165-0) [facility] AustinU[facility] [id number] 21:54:00 Test Item Value Reference Range Interpretation Comments Urine Ketones (test code = 87612-6) NEGATIVE NEGATIVE [facility] AustinU[facility] [id number] 21:54:00 Test Item Value Reference Range Interpretation Comments Urine Urobilinogen (test code = 0.2 0.2-1 05003-6) [facility] AustinU[facility] [id number] 21:54:00 Test Item Value Reference Range Interpretation Comments Urine Bilirubin (test code = 1977-8) NEGATIVE NEGATIVE [facility] AustinUrine [id number] 21:54:00 Test Item Value Reference Range Interpretation Comments Urine Blood (test code = 48596-5) 1+ NEGATIVE [facility] AustinWhite Blood [id number] 21:53:00 Test Item Value Reference Range Interpretation Comments White Blood Count (test code = 6690-2) 5.28 4.8-10.8 [facility] AustinRed Blood [id number] 21:53:00 Test Item Value Reference Range Interpretation Comments Red Blood Count (test code = 789-8) 4.76 4.3-5.7 [facility] AustinHemoglobin2019-08-11 21:53:00 Test Item Value Reference Range Interpretation Comments Hemoglobin (test code = 73560-9) 14.2 14.0-18.0 [facility] AustinHematocrit2019-08-11 21:53:00 Test Item Value Reference Range Interpretation Comments Hematocrit (test code = 4544-3) 40.2 38.2-49.6 [facility] AustinMean Corpuscular [id number] 21:53:00 Test Item Value Reference Range Interpretation Comments Mean Corpuscular Volume (test code = 84.5 81-99 787-2) [facility] AustinMean Corpuscular [id number] 21:53:00 Test Item Value Reference Range Interpretation Comments Mean Corpuscular Hemoglobin (test code 29.8 28-32 = 785-6) [facility] AustinMean Corpuscular Hemoglobin Concent 2019-03-25 21:53:00 Test Item Value Reference Range Interpretation Comments Mean Corpuscular Hemoglobin Concent 35.3 31-35 H (test code = 786-4) [facility] AustinRed Cell Distribution [id number] 21:53:00 Test Item Value Reference Range Interpretation Comments Red Cell Distribution Width (test code 12.4 11.7-14.4 = 25901-3) [facility] AustinPlatelet [id number] 21:53:00 Test Item Value Reference Range Interpretation Comments Platelet Count (test code = 777-3) 137 140-360 L [facility] AustinNeutrophils (%) (Auto)2019-03-25 21:53:00 Test Item Value Reference Range Interpretation Comments Neutrophils (%) (Auto) (test code = 72.8 38.7-80.0 38954-1) [facility] AustinLymphocytes (%) (Auto)2019-03-25 21:53:00 Test Item Value Reference Range Interpretation Comments Lymphocytes (%) (Auto) (test code = 17.6 18.0-39.1 L 736-9) [facility] AustinMonocytes (%) (Auto)2019-03-25 21:53:00 Test Item Value Reference Range Interpretation Comments Monocytes (%) (Auto) (test code = 5.9 4.4-11.3 5905-5) [facility] AustinEosinophils (%) (Auto)2019-03-25 21:53:00 Test Item Value Reference Range Interpretation Comments Eosinophils (%) (Auto) (test code = 2.7 0.0-6.0 713-8) [facility] AustinBasophils (%) (Auto)2019-03-25 21:53:00 Test Item Value Reference Range Interpretation Comments Basophils (%) (Auto) (test code = 0.6 0.0-1.0 706-2) [facility] AustinIM GRANULOCYTES %2019-03-25 21:53:00 Test Item Value Reference Range Interpretation Comments IM GRANULOCYTES % (test code = IM 0.4 0.0-1.0 GRANULOCYTES %) [facility] AustinNeutrophils # (Auto)2019-03-25 21:53:00 Test Item Value Reference Range Interpretation Comments Neutrophils # (Auto) (test code = 3.9 2.1-6.9 751-8) [facility] AustinLymphocytes # (Auto)2019-03-25 21:53:00 Test Item Value Reference Range Interpretation Comments Lymphocytes # (Auto) (test code = 0.9 1.0-3.2 L 55096-5) [facility] AustinMonocytes # (Auto)2019-03-25 21:53:00 Test Item Value Reference Range Interpretation Comments Monocytes # (Auto) (test code = 742-7) 0.3 0.2-0.8 [facility] AustinEosinophils # (Auto)2019-03-25 21:53:00 Test Item Value Reference Range Interpretation Comments Eosinophils # (Auto) (test code = 0.1 0.0-0.4 711-2) [facility] AustinBasophils # (Auto)2019-03-25 21:53:00 Test Item Value Reference Range Interpretation Comments Basophils # (Auto) (test code = 704-7) 0.0 0.0-0.1 [facility] AustinAbsolute Immature Granulocyte (auto 2019-03-25 21:53:00 Test Item Value Reference Range Interpretation Comments Absolute Immature Granulocyte (auto 0.02 0-0.1 (test code = Absolute Immature Granulocyte (auto) [facility] [id number] 21:53:00 Test Item Value Reference Range Interpretation Comments Sodium Level (test code = 2951-2) 140 136-145 [facility] AustinPotassium [id number] 21:53:00 Test Item Value Reference Range Interpretation Comments Potassium Level (test code = 2823-3) 3.9 3.5-5.1 [facility] AustinChloride [id number] 21:53:00 Test Item Value Reference Range Interpretation Comments Chloride Level (test code = 2075-0) 108 98-107 H [facility] AustinCarbon Dioxide [id number] 21:53:00 Test Item Value Reference Range Interpretation Comments Carbon Dioxide Level (test code = 22 -29 2027-9) [facility] AustinAnion [id number] 21:53:00 Test Item Value Reference Range Interpretation Comments Anion Gap (test code = 16825-6) 13.9 8-16 [facility] AustinBlood Urea [id number] 21:53:00 Test Item Value Reference Range Interpretation Comments Blood Urea Nitrogen (test code = 14 03-09 3094-0) [facility] AustinCreatinine2019-08-11 21:53:00 Test Item Value Reference Range Interpretation Comments Creatinine (test code = 2160-0) 0.94 0.72-1.25 [facility] AustinBUN/Creatinine [id number] 21:53:00 Test Item Value Reference Range Interpretation Comments BUN/Creatinine Ratio (test code = 15 02-06 3097-3) [facility] AustinEstimat Glomerular Filtration Rate 2019-03-25 21:53:00 Test Item Value Reference Range Interpretation Comments Estimat Glomerular Filtration Rate > 60 >60 (test code = 330801346) Ranges were taken from the National Kidney Disease Education Program and the National Kidney Foundation literature.Reference ranges:60 or greater: Anrwwz72- 59 (for 3 consecutive months): Chronic kidneydisease 15 or less: Kidney failure [facility] AustinGlucose [id number] 21:53:00 Test Item Value Reference Range Interpretation Comments Glucose Level (test code = NND2366) 114 74-118 [facility] AustinCalcium [id number] 21:53:00 Test Item Value Reference Range Interpretation Comments Calcium Level (test code = 72655-2) 9.3 8.4-10.2 [facility] AustinTotal [id number] 21:53:00 Test Item Value Reference Range Interpretation Comments Total Bilirubin (test code = 1975-2) 0.5 0.2-1.2 [facility] AustinAspartate Amino Transf (AST/SGOT) 2019-03-25 21:53:00 Test Item Value Reference Range Interpretation Comments Aspartate Amino Transf (AST/SGOT) (test 30 5-34 code = Aspartate Amino Transf (AST/SGOT)) [facility] AustinAlanine Aminotransferase (ALT/SGPT) 2019-03-25 21:53:00 Test Item Value Reference Range Interpretation Comments Alanine Aminotransferase (ALT/SGPT) 42 0-55 (test code = 1742-6) [facility] AustinTotal Pqrglas2011-07-95 21:53:00 Test Item Value Reference Range Interpretation Comments Total Protein (test code = 2885-2) 7.0 6.5-8.1 [facility] AustinAlbumin2019-08-11 21:53:00 Test Item Value Reference Range Interpretation Comments Albumin (test code = 1751-7) 4.2 3.5-5.0 [facility] AustinGlobulin2019-08-11 21:53:00 Test Item Value Reference Range Interpretation Comments Globulin (test code = 88517-2) 2.8 2.3-3.5 [facility] AustinAlbumin/Globulin [id number] 21:53:00 Test Item Value Reference Range Interpretation Comments Albumin/Globulin Ratio (test code = 1.5 0.8-2.0 1759-0) [facility] AustinAlkaline Emdngsvyfwh0811-94-15 21:53:00 Test Item Value Reference Range Interpretation Comments Alkaline Phosphatase (test code = 99 40-150 6768-6) [facility] AustinCreatine [id number] 21:53:00 Test Item Value Reference Range Interpretation Comments Creatine Kinase (test code = 2157-6) 249 30-200 H [facility] AustinCT, CTA [id number] 22:33:00Reason for exam:->Triple AWhat is the patient's sedation requirement?->No SedationFINAL REPORT EXAMINATION: CTA, abdomen and pelvis INDICATION: Abdominal pain. Evaluate for aortic injury. Abnormal outside ultrasound which was concerning for an abdominal aortic dissection. TECHNIQUE: Axial noncontrast tomographic images were acquired through the abdomen and p christo to evaluate for acute aortic mural hemorrhage. Following the administration of IV contrast, axial tomographic images were acquired during the early arterial phase of imaging through the abdomen and pelvis. Postprocessing was performed and coronal / sagittal reformatted images were created and rev iewed. 3-dimensional rotational angiographic models of the aorta were also created and reviewed. Theexam was performed according to our departmental dose optimization program which includes automated exposure control, adjustment of the mA and/or kV according to patient's size and/or use of iterative r econstructive technique. FINDINGS: Outside ultrasound currently unavailable. Nonvascular: Lung basesare clear. The heart size is normal. No evidence of a pericardial or pleural effusion. The distal esophagus is decompressed. The gallbladder is absent. No significant fluid within the gallbladder fossaor pathologic biliary dilatation. The liver is grossly unremarkable. The spleen is enlarged measuring 17 cm. Heterogeneous enhancement of the spleen is likely related to the early arterial phase of imaging. The pancreas is unremarkable. No evidence of a worrisome adrenal mass. No evidence of renal obstruction, nephrolithiasis or perinephric edema. The ureters are decompressed. Small calcifications are noted in the pelvis which are favored to reflect vascular phleboliths. Evaluation for a nonobstructing distal ureteral calculus however is limited by the absence of enteric contrast. Postoperative changes are noted involving the anterior abdominal wall. There is a small associated adipose tissue containing midline hernia. No evidence of bowel or abnormal fluid collection. The stomach is grossly unremarkable. The loops of small bowel are relatively normal in caliber. The appendix is not identified with certainty. A surgical clip is noted just dorsal to the cecum-terminal ileum. A moderate to largevolume of inspissated stool is noted in the colon extending from the cecum to the rectum. Punctate gas collections along the colon may reflect haustral folds. However superimposed diverticulosis shouldalso be considered. No definite evidence of associated diverticulitis. The bladder is unremarkable. The seminal vesicles are mildly prominent, nonspecific. The prostate gland is borderline enlarged forage. No significant intra-abdominal or pelvic free fluid. No definite evidence of an acute osseous abnormality. Vascular: The abdominal aorta is normal in course and caliber. No evidence of an aortic dissection, acute aortic mural hemorrhage, dissection or penetrating ulcer. Contrast opacifies the celiac, superior mesenteric and inferior mesenteric arteries without focal luminal narrowing, atherosclerotic plaque burden or thrombus. On the coronal reformatted images there appear to be 2 right main renal arteries. Alternatively there may be a very early bifurcation of the right main renal artery. Theleft main renal arteries widely patent. There is a retroaortic left renal vein, normal anatomic variant. The common iliac, internal iliac, external iliac and visualized femoral arteries are patent. Evaluation of the venous structures is limited by the early timing of the contrast bolus. IMPRESSION: Noevidence of an acute abdominal aortic / arterial process. Specifically, no evidence of an abdominal aortic dissection. Splenomegaly. Constipation. Results discussed with Dr. Marley. Signed: Cam Baldwin MDReport Verified Date/Time: 02/09/2019 22:33:52 Reading Location: [address] Reading Room [facility] 2019-02-09 21:03:00 Test Item Value Reference Range Interpretation Comments MAGNESIUM (BEAKER) (test code = 2.2 mg/dL 1.6-2.6 627) COMPREHENSIVE METABOLIC [id number] 21:03:00 Test Item Value Reference Range Interpretation Comments TOTAL PROTEIN 8.3 gm/dL 6.0-8.3 (BEAKER) (test code = 770) ALBUMIN (BEAKER) 4.8 g/dL 3.5-5.0 (test code = 1145) ALKALINE PHOSPHATASE 107 U/L 40-150 (BEAKER) (test code = 346) BILIRUBIN TOTAL 0.5 mg/dL 0.2-1.2 (BEAKER) (test code = 377) SODIUM (BEAKER) (test 139 meq/L 136-145 code = 381) POTASSIUM (BEAKER) 4.3 meq/L 3.5-5.1 (test code = 379) CHLORIDE (BEAKER) 104 meq/L 98-107 (test code = 382) CO2 (BEAKER) (test 27 meq/L 22-29 code = 355) BLOOD UREA NITROGEN 16 mg/dL 7-21 (BEAKER) (test code = 354) CREATININE (BEAKER) 1.23 mg/dL 0.57-1.25 (test code = 358) GLUCOSE RANDOM 83 mg/dL 70-105 (BEAKER) (test code = 652) CALCIUM (BEAKER) 9.9 mg/dL 8.4-10.2 (test code = 697) AST (SGOT) (BEAKER) 31 U/L 5-34 (test code = 353) ALT (SGPT) (BEAKER) 44 U/L 6-55 (test code = 347) EGFR (BEAKER) (test 67 mL/min/1.73 ESTIMA LANEY GFR IS code = 1092) sq m NOT ACCURATE CREATININE CLEARANCE IN PREDICTING GLOMERULAR FILTRATION RATE . ESTIMATED GFR I S NOT APPLICABLE FOR DIALYSIS PATIEN TS. PT/[id number] 20:54:00 Test Item Value Reference Range Interpretation Comments PROTIME (BEAKER) (test code = 13.3 seconds 11.9-14.2 759) INR (BEAKER) (test code = 370) 1.1 <=5.9 PARTIAL THROMBOPLASTIN TIME 31.5 seconds 22.5-36.0 (BEAKER) (test code = 760) Effective 01/10/2019: PT Reference Range ChangeNew: 11.9-14.2 Previous: 11.7- 14.7RECOMMENDED COUMADIN/WARFARIN INR THERAPY RANGESSTANDARD DOSE: 2.0-3.0 Includes: PROPHYLAXIS for venous thrombosis, systemic embolization; TREATMENT for venous thrombosis and/or pulmonary embolus.HIGH RISK: Target INR is2.5-3.5 for patients wiht mechanical heart valves.CBC W/PLT COUNT & AUTO [id number] 20:47:00 Test Item Value Reference Range Interpretation Comments WHITE BLOOD CELL COUNT (BEAKER) 6.0 K/ L 3.5-10.5 (test code = 775) RED BLOOD CELL COUNT (BEAKER) 5.30 M/ L 4.63-6.08 (test code = 761) HEMOGLOBIN (BEAKER) (test code = 15.4 GM/DL 13.7-17.5 410) HEMATOCRIT (BEAKER) (test code = 45.0 % 40.1-51.0 411) MEAN CORPUSCULAR VOLUME (BEAKER) 84.9 fL 79.0-92.2 (test code = 753) MEAN CORPUSCULAR HEMOGLOBIN 29.1 pg 25.7-32.2 (BEAKER) (test code = 751) MEAN CORPUSCULAR HEMOGLOBIN CONC 34.2 GM/DL 32.3-36.5 (BEAKER) (test code = 752) RED CELL DISTRIBUTION WIDTH 12.6 % 11.6-14.4 (BEAKER) (test code = 412) PLATELET COUNT (BEAKER) (test 184 K/CU MM 150-450 code = 756) MEAN PLATELET VOLUME (BEAKER) 9.6 fL 9.4-12.4 (test code = 754) NUCLEATED RED BLOOD CELLS 0 /100 WBC 0-0 (BEAKER) (test code = 413) NEUTROPHILS RELATIVE PERCENT 63 % (BEAKER) (test code = 429) LYMPHOCYTES RELATIVE PERCENT 26 % (BEAKER) (test code = 430) MONOCYTES RELATIVE PERCENT 6 % (BEAKER) (test code = 431) EOSINOPHILS RELATIVE PERCENT 3 % (BEAKER) (test code = 432) BASOPHILS RELATIVE PERCENT 1 % (BEAKER) (test code = 437) NEUTROPHILS ABSOLUTE COUNT 3.78 K/ L 1.78-5.38 (BEAKER) (test code = 670) LYMPHOCYTES ABSOLUTE COUNT 1.55 K/ L 1.32-3.57 (BEAKER) (test code = 414) MONOCYTES ABSOLUTE COUNT (BEAKER) 0.37 K/ L 0.30-0.82 (test code = 415) EOSINOPHILS ABSOLUTE COUNT 0.20 K/ L 0.04-0.54 (BEAKER) (test code = 416) BASOPHILS ABSOLUTE COUNT (BEAKER) 0.05 K/ L 0.01-0.08 (test code = 417) IMMATURE GRANULOCYTES-RELATIVE 0 % 0-1 PERCENT (BEAKER) (test code = 2801) CT ABD/PEL WITH [id number]-[id number] 14:45:00 [place] [address] Patient Name: MAGDALENA ROMERO MR #: [id number] : 1980 Age/Sex: 38/M Req #: [id number] Adm Physician: Ordered by: ANGIE GRIMES MD Report #: [id number] Location: [facility] Room/Bed: Procedure: [id number] HOPD/CT ABD/PEL WITH CONTRAST-HOPD Exam Date: 02/01/19 Exam Time: 1456 REPORT STATUS: Signed EXAMINATION: CT of the abdomen and pelvis with contrast. TECHNIQUE: Spiral CT images of the abdomen and pelvis were performed from the lung bases to the lesser trochanters after the intravenous administration of 100 cc Isovue-370. Coronal and sagittal reformatted images were obtained. COMPARISON: 01/13/2019 CLINICAL HISTORY:Left-sided abdominal pain DISCUSSION: ABDOMEN/PELVIS: LOWER THORAX:Unremarkable. HEPATOBILIARY: No focal hepatic lesions. No intra-or extrahepatic biliary ductal dilation. The gallbladder has been removed. SPLEEN: Mild splenomegaly. Small splenule adjacent to the hilum. PANCREAS: No focal masses or ductal dilatation. ADRENALS: No adrenal nodules. KIDNEY S/URETERS: No hydronephrosis, stones, or solid mass lesions. PELVIC ORGANS/BLADDER: The urinarybladder is poorly distended but otherwise unremarkable. PERITONEUM/RETROPERITONEUM: No free air or fluid. LYMPH NODES: No pelvic sidewall, retroperitoneal, or mesenteric lymphadenopathy. VESSELS: Abdominal aorta, major branch vessels, and iliac arterial systems are well-visualizedand patent. Retroaortic left renal vein area prominent splenic and portal vein and noted. GI TRACT: The large bowel is again notable for innumerable sigmoid diverticula without wall thickeningor adjacent inflammatory change. The adjacent ascending and transverse colon is collapsed and poorly evaluated. The appendix has presumably been removed with right lower quadrant bairon. No small bowel dilatation to suggest obstruction. BONES AND SOFT TISSUE: Postsurgical changes of the anterior abdominal wall presumably related to hernia repair. Otherwise no focal soft tissue abnormal ities. No osseous destructive lesions. IMPRESSION: No acute intra- abdominal or pelvic CTabnormalities. Sigmoid and descending colon diverticulosis without findings of diverticulitis. As before, nonspecific splenomegaly and prominence of the portal venous system. Postsurgical changes of ventral hernia repair. Signed by: Dr. Jennifer Becker M.D. on 02/01/2019 2:56 PM Dictated By: JENNIFER BECKER MD 55 Transcribed By: IRVIN on 02/01/191455 COPY TO: ANGIE GRIMES MDCT ABD/PEL WITH [id number]-[id number] 23:04:00 [place] [address] Patient Name: MAGDALENA ROMERO MR #: [id number] : 1980 Age/Sex: 38/M Req #: [id number] Adm Physician: Ordered by: LANCE NEAL MD Report #: [id number] Location: [facility] Room/Bed: Procedure: [id number] HOPD/CT ABD/PEL WITH CONTRAST-HOPD Exam Date: 01/13/19 Exam Time: 2244 REPORT STATUS: Signed CT Abdomen And Pelvis with Intravenous Contrast INDICATION: Left lower quadrant pain [id number] TECHNIQUE: Thin collimationaxial images obtained from the diaphragm to the level of the pubic symphysis following the uneventful administration of 100 cc of low osmolar, nonionic intravenous contrast. Dose reduction techniques used: Automated exposure control, adjustment of the mAs and/or kVp according to patient size, standardized low- dose protocol, and/or iterative reconstruction technique. RADIATION DOSE: Total DLP: 796.13 mGy*cm Estimated effective dose: (DLP x 0.015 x size factor) mSv CTDIvol has been reviewed. It is below the limits set by the Radiation Protocol Committee (RPC). COMPARISON: None. ABDOMEN FINDINGS: Lung Bases: Clear. The visualized portions of the mediastinum are normal.. Liver: Normal attenuation. No evidence for mass. Gallbladder: Absent. No biliary ductal dilatation. Pancreas: Normal attenuation without mass or ductal dilatation. Spleen: Measures 17.6 cm. No mass. Adrenal Glands: No evidence for mass.Kidneys: Right: Normal enhancement. No soft tissue mass. No hydronephrosis. Left: Normal enhancement. No soft tissue mass. No hydronephrosis. Lymph Nodes: No enlarged abdominal or periaortic lymph nodes. Aorta: Normal in diameter. There is a retroaortic left renal vein.The portal vein measures 17 mm in diameter and is widely patent. PELVIS FINDINGS: Bowel: Stomach: Normal. Small Bowel: Normal in diameter with normal wall thickness. Large Bowel: Diverticulosis coli particularly of the descending colon. No associated inflammation. No large bowel dilatation. Appendix: Not visualized. Bladder: Under distended but otherwise normal. Otherpelvic organs appear normal.. Peritoneum/retroperitoneum: No free fluid or fluid collection. Bones: Unremarkable for age. Soft tissues: Ventral abdominal wall mesh superior to the umbilicus. No evidence of hernia. IMPRESSION: 1. Diverticulosis coli. No evidence for bowelobstruction or inflammation. Nonvisualization of the appendix, if present. 2. Splenomegaly and enlarged portal vein suggestive of portal hypertension. No CT evidence of cirrhosis. No ascites. No abdominopelvic lymphadenopathy. Signed by: Dr. Gregg Diamond MD on 01/13/2019 11:10 PM Dictated By: GREGG DIAMOND MD 09 Transcribed By: IRVIN on 01/13/190 COPY TO: LANCE NEAL MDHAND 3 VIEW RT - [id number] 23:02:00 [place] [address] Patient Name: MAGDALENA ROMERO MR #: [id number] : 1980 Age/Sex: 38/M Req #: [id number] Adm Physician: Ordered by: LANCE NEAL MD Report #: [id number] Location: [facility] Room/Bed: Procedure: [id number] HOPD/HAND 3 VIEW RT - HOPD Exam Date: 01/13/19 Exam Time: 2244 REPORT STATUS: Signed Hand Complete CPT code: 08114 Indication:Laceration to thumb (glass) Technique: Three views of the right hand obtained Comparison: None. Findings: Distal radius and ulna appear intact. Mild negative ulnar variance. Carpal bones appear generally well aligned. The digits are intact and normally aligned. No radiopaque foreign body in the soft tissues. IMPRESSION: No evidence for displaced fracture or current dislocation of the hand. No radiopaque foreign bodies. Signed by: Dr. Gregg Diamond MD on 01/13/2019 11:04 PM Dictated By: GREGG DIAMOND MD 03 Transcribed By: IRVIN on 01/13/192303 COPY TO: LANCE NEAL [id number] 13:26:00 Surgical Pathology Report Case: [id number] Authorizing Provider: Trell Fan Collected: 09/27/2017 1608 Ordering Location: [facility] Surgery Received: 09/27/2017 1608 Pathologist: Evelyn La MD Specimen: Biopsy, Liver, TRANSJUGULAR LIVER BIOPSY WITH PRESSURE MEASURMENTS LIVER, TRANSJUGULAR NEEDLE BIOPSIES- LIVER PARENCHYMA WITH NO SIGNIFICANT DIAGNOSTIC ALTERATIONS- SEE COMMENT Signing Pathologist Direct Phone Line: [phone] signed by Evelyn La MD on 09/16 at 1:26 PMThe liver biopsy shows minimal steatosis, involving about 1% of liver parenchyma, and there is mild perisinusoidal fibrosis. There is no significant portal fibrosis. 414[address], [address]396 D1Wgjjjxmafip splenomegalyTransjugular liver biopsyThe specimen is received in a formalin-filled container and labeled with the patient's name and medical record number labeled "transjugular liver biopsy and consists of multiple ivan-brown core biopsy ranging from 0.3 to 1.5 cm, submitted entirely A1. CG/plSection shows multiple variably sized cores of liver parenchyma with greater than 10 portal tracts and is adequate for evaluation. The portal tracts are unremarkable with preserved bile ducts. No significant portal inflammation is noted. There is minimal focal steatosis involving 1% of liver parenchyma. No ballooning degeneration is seen. There is rare focal lobular inflammation with occasional acidophilic body. Iron stain shows rare focal 1+ staining in the hepatocytes. No hyaline globules are seenon PAS with diastase stain.Trichrome stain shows mild perisinusoidal fibrosis. No significant portalfibrosis is seen. Reticulin stain shows 1-2 cell thick hepatocyte trabeculae. Special stains: trichrome, reticulin, iron and PAS with diastaseANG, TRANSCATHETER [id number] 17:17:00Specify Organ:- >unexplained splenomegalyReason for Exam:->other specified abnormal findings ofblood chemistryFINAL REPORT HISTORY: Elevated liver function tests, splenomegaly PROCEDURE:Following informed written consent, the patient's right cervical region was prepped and draped in the usual sterile manner. 2% lidocaine was given locally for anesthesia. Additionally, the patient received 3 mg IV Versed and 150 mcg IV fentanyl in incremental doses for conscious sedation and pain control. Vital signs were monitored and remained stable. Conscious sedation and continuous patient monitoring were performed by the attending radiologist and a registered nurse for approximately 30 minutes d uring the procedure. Access was gained to the right internal jugular vein using ultrasound guidance a micropuncture needle. A Sood wire was advanced through the micropuncture sheath and into the inferior vena cava. A 9 Greek sheath was placed. The purpose catheter and wire were used to carefully select to perform a hepatic venogram. Biopsy sheath was advanced over the catheter and wire into the middle hepatic vein. A total of for 19-gauge core tissue samples were obtained from the hepatic parenchyma adjacent to the hepatic vein. Samples were submitted in formalin for pathologic evaluation. Repeatvenography was performed following the biopsy. Catheter and sheath were then removed and hemostasis achieved without immediate complications. Patient was discharged from the department in stable condition. FINDINGS: Single sonographic image of the right jugular vein prior to the procedure demonstrates patent jugular vein. Normal compressibility of this vessel is seen without visible thrombus. Ultrasound image of the right internal jugular vein was obtained and archived on PACs. Hepatic venogram shows patent hepatic veins without venous anomalies. During the biopsy, the biopsy needle is noted in the hepatic parenchyma adjacent to the middle hepatic vein. Following the biopsy, repeat venography shows no evidence for contrast extravasation or hemorrhage. Hepatic Venous Pressures as follows: Wedged hepatic pressure: 14 mmHgHepatic venous pressure: 9 mmHgRight atrial pressure: 0 mmHg IMPRESSION: 1. Successful uncomplicated transjugular liver biopsy. A total of for 19-gauge core tissue samples were obtained via the middle hepatic vein. Hepatic venous pressures, as detailed above Fluoroscopy time: 3.3 minsEstimated dose reported as (Ka,r): 85 mGy Signed: Kraig Sanchez Verified Date/Time:09/27/2017 17:17:33 Reading Location: [place] [address] Angio Body Reading Room Electronically signedby: KRAIG SANCHEZ M.D. on 09/27/2017 05:17 PM COMPREHENSIVE METABOLIC [id number] 07:25:00 Test Item Value Reference Range Interpretation Comments TOTAL PROTEIN 7.5 gm/dL 6.0-8.3 (BEAKER) (test code = 770) ALBUMIN (BEAKER) 4.3 g/dL 3.5-5.0 (test code = 1145) ALKALINE PHOSPHATASE 114 U/L 40-150 (BEAKER) (test code = 346) BILIRUBIN TOTAL 0.5 mg/dL 0.2-1.2 (BEAKER) (test code = 377) SODIUM (BEAKER) (test 139 meq/L 136-145 code = 381) POTASSIUM (BEAKER) 4.1 meq/L 3.5-5.1 (test code = 379) CHLORIDE (BEAKER) 107 meq/L 98-107 (test code = 382) CO2 (BEAKER) (test 24 meq/L 22-29 code = 355) BLOOD UREA NITROGEN 11 mg/dL 7-21 (BEAKER) (test code = 354) CREATININE (BEAKER) 1.00 mg/dL 0.57-1.25 (test code = 358) GLUCOSE RANDOM 101 mg/dL 70-105 (BEAKER) (test code = 652) CALCIUM (BEAKER) 9.2 mg/dL 8.4-10.2 (test code = 697) AST (SGOT) (BEAKER) 35 U/L 5-34 H (test code = 353) ALT (SGPT) (BEAKER) 60 U/L 6-55 H (test code = 347) EGFR (BEAKER) (test 85 mL/min/1.73 ESTIMA LANEY GFR IS code = 1092) sq m NOT ACCURATE CREATININE CLEARANCE IN PREDICTING GLOMERULAR FILTRATION RATE . ESTIMATED GFR I S NOT APPLICABLE FOR DIALYSIS PATIEN TS. PT/[id number] 07:14:00 Test Item Value Reference Range Interpretation Comments PROTIME (BEAKER) (test code = 13.8 seconds 11.7-14.7 759) INR (BEAKER) (test code = 370) 1.1 <=5.9 PARTIAL THROMBOPLASTIN TIME 31.1 seconds 22.5-36.0 (BEAKER) (test code = 760) RECOMMENDED COUMADIN/WARFARIN INR THERAPY RANGESSTANDARD DOSE: 2.0 - 3.0 Includes: PROPHYLAXIS forvenous thrombosis, systemic embolization; TREATMENT for venous thrombosis and/or pulmonary embolus.HIGH RISK: Target INR is 2.5-3.5 for patients with mechanical heart valves.PLATELET [id number] 07:09:00 Test Item Value Reference Range Interpretation Comments PLATELET COUNT (BEAKER) (test 143 K/CU MM 150-450 L code = 756) NHYPPTNNDH1358-28-64 08:31:0034.2[facility] DryedgzWBRFINASNW5052-10-44 08:31:00 13.3[facility] WnxtmmhQZVMPJVZJN8390-89-26 08:31:40002Ckgyzcos HermannHEMATOLOGY 2016-04-09 08:31:008.2[facility] XtydonqJZLAAHHMKB7613-15-45 08:31:005.1[facility] WmmxlttUUMYAHDKDV9410-67-67 08:31:0083.0[facility] XdvygioFOOHKGHKPB4403-70-16 08:31:00 Test Item Value Reference Range Interpretation Comments MCH (test code = MCH) 28.4 pg 27.0-31.0 [facility] BvkruayWMIUPHJFYC9196-32-74 08:31:0015.1[facility] HermannHEMATOLOGY 2016-04-09 08:31:005.33[facility] EfhxqqxEYYDCDCKPG2143-56-19 08:31:0044.3[facility] LtqppynSKETKBCMAK1197-57-38 08:31:006.8[facility] KykpchxUJXUPWICWB7743-67-76 08:31:000.6[facility] RvdqztkWBJYDTWOCK5759-93-08 08:31:003.7[facility] [place] NDPTAFTSDQ9076-46-71 08:31:000.9[facility] GpbyxjgGDGYBBSMWV4479-48-47 08:31:001.9 [facility] XgyzitoEKRYACWWNT2565-90-49 08:31:0072.4[facility] HermannHEMATOLOGY 2016-04-09 08:31:0018.3[facility] PkbbuvoAOZEIZTPWC1462-15-14 08:31:000.3[facility] TkolffxEAAPFYDBHO9958-23-73 08:31:000.1[facility] HermannCHEM KAPGC5763-38-34 08:31:19564Cpevifke HermannCHEM CGJVQ7379-59-33 08:31:008.2[facility] HermannCHEM KBTHV0269-34-57 08:31:0027[facility] HermannCHEM GHBNP6475-10-32 08:31:004.0 [facility]annCHEM UXHFL4779-97-48 08:31:30578Skezbizw HermannCHEM PANEL 2016-04-09 08:31:22906Erdjibfx HermannCHEM DFIXU6061-22-42 08:31:0095[facility] HermannCHEM NUHYQ5278-24-52 08:31:0024[facility] HermannCHEM VUYIY6977-66-45 08:31:0046[facility] HermannCHEM MYKJH6684-43-43 08:31:003.6[facility] HermannCHEM SDNSX1364-24-57 08:31:006.7[facility] HermannCHEM MHWBD9801-48-78 08:31:000.6 [facility]annCHEM KFXAL1763-78-90 08:31:0079[facility] HermannCHEM PANEL 2016-04-09 08:31:000.97[facility] HermannCHEM PZRYS4556-14-18 08:31:008[facility] HermannCHEM BKLHW5492-04-64 08:31:001.2[facility] HermannCHEM PEEMK1210-58-49 08:31:003.1[facility] HermannCHEM NEJQM9462-42-43 08:31:008[facility] HermannCHEM VNXXL0304-08-65 08:31:0010.0[facility] CdhydxlVZVXMUESAF4758-18-67 08:31:0034.2 [facility] DuhzcdyFQFJQJABDJ0374-06-72 08:31:0013.3[facility] HermannHEMATOLOGY 2016-04-09 08:31:91843Zybgxigs YkjsfoaACMQMSYVDH0589-88-60 08:31:008.2[facility] AhqrpweXWTOLVQHDS5752-05-39 08:31:005.1[facility] ArshrzsQQRARFNBQC1484-74-34 08:31:0083.0[facility] DhezoupSKTUMICYZW1240-40-95 08:31:00 Test Item Value Reference Range Interpretation Comments MCH (test code = MCH) 28.4 pg 27.0-31.0 [facility] RnhonwlAMYJTGKATZ0480-09-94 08:31:0015.1[facility] HermannHEMATOLOGY 2016-04-09 08:31:005.33[facility] PczqqrhAFMDOQUPSB5380-02-51 08:31:0044.3[facility] XsnbavrDUDALPVPTY8805-60-67 08:31:006.8[facility] TpfhmfbFJVAEJOABS4770-87-19 08:31:000.6[facility] KgcnvjjNIAMMJBBXI3633-94-97 08:31:003.7[facility] PNKPYTWPMN2197-68-08 08:31:000.9[facility] NzaxzjkKPBDOWSWMA1749-58-77 08:31:001.9 [facility] BkwpqntRYNTJOVEJQ7789-45-49 08:31:0072.4[facility] HermannHEMATOLOGY 2016-04-09 08:31:0018.3[facility] KpxcjweQLBVYSOBSI6478-39-35 08:31:000.3[facility] ZyyvyjzOXAGFDWHCK5909-35-28 08:31:000.1[facility] HermannCHEM TAAJW9176-07-45 08:31:02488Ibnrmoen HermannCHEM UQENQ6821-16-39 08:31:008.2[facility] HermannCHEM OHEZJ1813-71-99 08:31:0027[facility] HermannCHEM ZSCKY5521-91-18 08:31:004.0 [facility] HermannCHEM TQSSF0504-36-43 08:31:30978Mmxdkwja HermannCHEM PANEL 2016-04-09 08:31:54516Rdplvzev HermannCHEM NQMFO5818-15-87 08:31:0095[facility] HermannCHEM IMFRA7541-75-18 08:31:0024[facility] HermannCHEM ZOEAK7229-19-82 08:31:0046[facility] HermannCHEM YDVCZ9909-02-11 08:31:003.6[facility] HermannCHEM DMFGZ7477-83-97 08:31:006.7[facility] HermannCHEM MTWKB3325-68-07 08:31:000.6 [facility]annCHEM YMHCL9481-15-60 08:31:0079[facility] HermannCHEM PANEL 2016-04-09 08:31:000.97[facility] HermannCHEM CLOCQ1422-47-00 08:31:008[facility] HermannCHEM FNWTD3492-95-40 08:31:001.2[facility] HermannCHEM SQYKL3984-37-52 08:31:003.1[facility] HermannCHEM TBKZZ5693-26-24 08:31:008[facility] HermannCHEM RIHIC9571-08-60 08:31:0010.0[facility] HermannCHEM OQIPV6563-58-76 20:03:0052 [facility]annCHEM WYWVD7723-82-46 20:03:0025[facility] HermannCHEM PANEL 2016-04-08 20:03:0094[facility] HermannCHEM YSFLS6069-80-56 20:03:003.2[facility] HermannCHEM EGRYG1713-41-55 20:03:001.9[facility] HermannCHEM NTKVT2336-70-36 20:03:15961Djuxobcn HermannCHEM GQZSI8273-78-91 20:03:0081[facility] HermannCHEM EXHQI4648-62-23 20:03:0010[facility] HermannCHEM QVEGG6855-72-01 20:03:000.94 [facility]annCHEM DYCNL0705-20-06 20:03:008.1[facility] HermannCHEM PANEL 2016-04-08 20:03:13778Shzckaru HermannCHEM SOLBH7611-42-46 20:03:004.1[facility] HermannCHEM CREXB9497-12-87 20:03:99397Pbcdfkvk HermannCHEM CPSGO8177-10-12 20:03:0025[facility] HermannCHEM UHWVW3047-21-69 20:03:000.4[facility] HermannCHEM YMKCV8881-53-24 20:03:003.9[facility] HermannCHEM SXPBX4896-70-81 20:03:006.7 [facility]annCHEM MVTFW3593-26-79 20:03:001.4[facility] HermannCHEM PANEL 2016-04-08 20:03:002.8[facility] HermannCHEM ZEEKU2374-04-22 20:03:0011[facility] HermannCHEM LVZYK2151-15-47 20:03:0014.1[facility] HermannCHEM XLBPG4165-57-79 20:03:0078[facility] OrwvfjlZZOHDHQXPC2018-03-69 20:03:001.3[facility] [place] LEIIJMKIDO9284-66-51 20:03:005.2[facility] IjablqzVHDCWGYNAO3517-21-51 20:03:00 18.6[facility] HermannCHEM TFDAS3042-58-43 20:03:000.4[facility] HermannCHEM PANEL 2016-04-08 20:03:0052[facility] HermannCHEM DUUMJ0889-54-08 20:03:0025[facility] HermannCHEM PIUWQ7709-58-23 20:03:0094[facility] HermannCHEM LDFFP2975-94-38 20:03:008.1[facility] HermannCHEM BILUR9566-54-68 20:03:003.9[facility] HermannCHEM IUSVK8059-31-61 20:03:006.7[facility] HermannCHEM HLQLQ2013-05-25 20:03:001.4 [facility]annCHEM LTWRQ8258-76-86 20:03:002.8[facility] HermannCHEM PANEL 2016-04-08 20:03:0011[facility] HermannCHEM HROMI6483-00-70 20:03:0014.1[facility] HermannCHEM TTKHH7988-73-32 20:03:0078[facility] QyseqcsYXMMADSCQC8843-02-51 20:03:001.3[facility] QzqccspUVSIFEEUXF9796-22-95 20:03:005.2[facility] HLNHEVARJX8156-10-41 20:03:0018.6[facility] AiaqfxaLCLQQAKNGV3889-90-99 20:03:00 74.3[facility] FwuaeapOGEJRKHNLA5855-29-04 20:03:000.1[facility]annHEMATOLOGY 2016-04-08 20:03:000.2[facility] PohumkeNRBEQLUAVR5361-49-26 20:03:000.8[facility] GgtadloAGWJWFQQWR6440-97-61 20:03:003.4[facility] RtzslgoZWPXXTGRHX2891-72-61 20:03:000.[facility] GgibfpzLMBAEDETSF0904-61-55 20:03:00 Test Item Value Reference Range Interpretation Comments MCH (test code = MCH) 28.2 pg 27.0-31.0 [facility] DzejljoXBJNRNYKZP0039-03-14 20:03:0081.9[facility] 2016-[facility]08 20:03:0043.6[facility] QklhvoyGSUIDHHVQY6029-19-25 20:03:0015.0[facility] HwadrttBAARONAUAY2972-05-15 20:03:005.33[facility] MgobuvmITPBTHUITH7027-33-35 20:03:008.1[facility] ArcgyraOWSASUCWNK9238-79-05 20:03:18457Tuwmuizl Ephraim TURMBYCBEA2375-11-50 20:03:0013.5[facility] KvejljsRBZGMNBRAQ2312-21-40 20:03:00 74.3[facility] MimkyohGHJFDJFWZN0140-49-16 20:03:0034.5[facility]ann[facility]OLOGY 2016-04-08 20:03:004.[facility]orial FpvbwksNHWDFZFLWN6904-38-41 20:03:000.1[facility] XwkitijNRCRKXXSIO4424-85-87 20:03:000.2[facility] HermannCHEM TYGPG1078-71-92 20:03:003.2[facility] HermannCHEM SQMXP1309-00-16 20:03:001.9[facility] HermannCHEM PXSQE6409-82-03 20:03:24727Bisghfku HermannCHEM VKCTV7869-73-50 20:03:0081 [facility]annCHEM MFSHL9782-37-51 20:03:0010[facility]annCHEM PANEL 2016-04-08 20:03:000.94[facility] HermannCHEM PFYDV9235-91-39 20:03:81683Bvvpabch HermannCHEM AUBGB8738-60-32 20:03:004.1[facility] HermannCHEM HHGBX4917-64-72 20:03:78871Oinpykok HermannCHEM XZJGG0615-19-75 20:03:0025[facility] WYSEZMFLQK8962-23-51 20:03:000.8[facility] VuqtlrgWFKTEBYXRW3890-94-73 20:03:003.4 [facility] SvxmfspOCFCQYIDNR1024-79-56 20:03:000.6[facility]annHE[facility]OLOGY 2016-04-08 20:03:00 Test Item Value Reference Range Interpretation Comments MCH (test code = MCH) 28.2 pg 27.0-31.0 [facility] OtnymmrNWHHQDVSWH3199-67-27 20:03:0081.9[facility]annHEMATOLOGY 2016-04-08 20:03:0043.6[facility] PeljibbCWTAKZFFBG9621-10-39 20:03:0015.0[facility] FsoweprYJKWDLCNPI1966-04-82 20:03:005.33[facility] MirjcinLYTPHUYHBS6850-44-86 20:03:008.1[facility] UwhxkunOYOBXLRPWP5335-27-79 20:03:68871Biudoxrz Ephraim UCFCPJQEBW9397-57-81 20:03:0013.5[facility] SxtsmbmRHTUCJBJXM5664-25-72 20:03:00 34.5[facility] CxnepnwXKWHMIQKRS4003-11-73 20:03:004.6[facility] [place]
--- NOTE | 2021-04-01 21:04 | EDPHYS ---
Physician Documentation [facility] Name: Suhas Hallman Age: 40 yrs Sex: Male : 1980 Arrival Date: 04/01/2021 Time: 19:40 Bed Treatment Private MD: ED Physician Krista Rosa HPI: 04/01 23:44 This 40 yrs old Male presents to ER via Ambulatory with complaints of Suture kb Recheck - Thinks it may be infected. 23:44 Patient presents to ED for recheck of: areas of biopsy. The affected area is on the kb abdomen and back and dorsal aspect of right forearm. Previous treatment: the care was rendered at [facility]. Progress: The patient reports increased redness. The patient has not experienced similar symptoms in the past. The patient has been recently seen by a physician:. Patient reports he has had some lumps under his skin for quite some time. Went to [facility] to have biopsies of these masses last week. Reports redness to areas where biopsies were taken and is concerned they are getting infected.. Historical: - Allergies: 20:06 No Known Allergies; iw - Home Meds: 20:06 None [Active]; iw - PMHx: 20:06 None; iw - PSHx: 20:06 Appendectomy; Cholecystectomy; iw - Immunization history:: Client reports receiving the 1st dose of the Covid vaccine, J\T\J. - Social history:: Smoking status: Patient reports the use of cigarette tobacco products, denies chronic smoking, but will smoke occasionally. ROS: 23:44 Constitutional: Negative for fever, chills, and weight loss. kb 23:44 Skin: Positive for erythema, of the abdomen and back and dorsal aspect of right forearm. 23:44 All other systems are negative. kb Exam: 23:44 Constitutional: This is a well developed, well nourished patient who is awake, alert, kb and in no acute distress. Head/Face: Normocephalic, atraumatic. ENT: Moist Mucous membranes Respiratory: Respirations even and unlabored. No increased work of breathing, no retractions or nasal flaring. MS/ Extremity: Pulses equal, no cyanosis. Neurovascular intact. Full, normal range of motion. Neuro: Awake and alert, GCS 15, oriented to person, place, time, and situation. Moves all extremities. Normal gait. Psych: Awake, alert, with orientation to person, place and time. Behavior, mood, and affect are within normal limits. 23:44 Skin: Sutures in place to multiple areas of biopsies. Slight redness noticed to suture sites not incision sites. No drainage noted.. Vital Signs: 20:03 BP 130 / 81; Pulse 75; Resp 16 S; Temp 98.0; Pulse Ox 97% on R/A; Weight 108.86 kg; iw Height 6 ft. 2 in. (187.96 cm); 20:03 Body Mass Index 30.81 (108.86 kg, 187.96 cm) iw MDM: 21:00 Patient medically screened. kb 21:03 Data reviewed: vital signs, nurses notes. Data interpreted: Pulse oximetry: on room air kb is 97 %. Interpretation: normal. Counseling: I had a detailed discussion with the patient and/or guardian regarding: the historical points, exam findings, and any diagnostic results supporting the discharge/admit diagnosis, the need for outpatient follow up, a family practitioner, to return to the emergency department if symptoms worsen or persist or if there are any questions or concerns that arise at home. 23:49 ED course: Patient will call [facility] tomorrow for follow-up.. kb Administered Medications: No medications were administered Disposition: 04/02 07:11 Co-signature as Attending Physician, Krista Rosa I agree with the assessment and plan sp3 of care. Disposition Summary: 04/01/21 21:04 Discharge Ordered Location: Home kb Condition: Stable kb Diagnosis - Local infection of the skin and subcutaneous tissue, unspecified kb Followup: kb - With: Emergency Department - When: As needed - Reason: Worsening of condition Followup: kb - With: Private Physician - When: 2 - 3 days - Reason: Recheck today's complaints, Continuance of care, Re-evaluation by your physician Discharge Instructions: - Discharge Summary Sheet kb - Wound Infection, Mina-lp-Ftve kb Forms: - Medication Reconciliation Form kb - Thank You Letter kb - Antibiotic Education kb - Prescription Opioid Use kb Prescriptions: - Bactrim DS 800-160 mg Oral Tablet - take 1 tablet by ORAL route every 12 hours for 10 days; 20 tablet; Refills: 0, kb Product Selection Permitted Signatures: Kaitlynn Latham, AROLDO-C AROLDO-Michela Calhoun, Marleni Harris RNul sp3 Corrections: (The following items were deleted from the chart) 04/01 20:06 20:06 PSHx: None; joanne rubio
--- NOTE | 2021-04-01 21:04 | ER ---
Nurse's Notes [facility] Name: Suhas Hallman Age: 40 yrs Sex: Male : 1980 Arrival Date: 04/01/2021 Time: 19:40 Bed Treatment Private MD: Diagnosis: Local infection of the skin and subcutaneous tissue, unspecified Presentation: 04/01 20:03 Chief complaint: Patient states: had some knots removed from right forearm and left abd iw , and back last Tuesday at [facility] in [place] and is worried now bc they look infected and it hurts. Coronavirus screen: At this time, the client does not indicate any symptoms associated with coronavirus-19. Ebola Screen: Patient negative for fever greater than or equal to 101.5 degrees Fahrenheit, and additional compatible Ebola Virus Disease symptoms Patient denies exposure to infectious person. Patient denies travel to an Ebola-affected area in the 21 days before illness onset. No symptoms or risks identified at this time. Initial Sepsis Screen: Does the patient meet any 2 criteria? No. Patient's initial sepsis screen is negative. Does the patient have a suspected source of infection? No. Patient's initial sepsis screen is negative. Risk Assessment: Do you want to hurt yourself or someone else? Patient reports no desire to harm self or others. Onset of symptoms was April 01, 2021. 20:03 Method Of Arrival: Ambulatory iw 20:03 Acuity: MANSI 4 iw Historical: - Allergies: 20:06 No Known Allergies; iw - Home Meds: 20:06 None [Active]; iw - PMHx: 20:06 None; iw - PSHx: 20:06 Appendectomy; Cholecystectomy; iw - Immunization history:: Client reports receiving the 1st dose of the Covid vaccine, J\T\J. - Social history:: Smoking status: Patient reports the use of cigarette tobacco products, denies chronic smoking, but will smoke occasionally. Screenin:57 Abuse screen: Denies threats or abuse. Nutritional screening: No deficits noted. em Tuberculosis screening: No symptoms or risk factors identified. Fall Risk None identified. Assessment: 21:00 General: Appears in no apparent distress. comfortable, Behavior is calm, cooperative, em Denies fever. Pain: Complains of pain in back, abdomen and dorsal aspect of right forearm. Neuro: Level of Consciousness is awake, alert, obeys commands, Oriented to person, place, time, situation. Cardiovascular: Capillary refill < 3 seconds Patient's skin is warm and dry. Respiratory: Airway is patent Respiratory effort is even, unlabored, Respiratory pattern is regular, symmetrical. Derm: Skin is intact, is healthy with good turgor, Skin is pink, warm \T\ dry. Wound noted Other: sutures to right forearm, abdomen and back, redness noted to suture sites, no drainage noted. Musculoskeletal: Capillary refill < 3 seconds, Range of motion: intact in all extremities. Vital Signs: 20:03 BP 130 / 81; Pulse 75; Resp 16 S; Temp 98.0; Pulse Ox 97% on R/A; Weight 108.86 kg; iw Height 6 ft. 2 in. (187.96 cm); 20:03 Body Mass Index 30.81 (108.86 kg, 187.96 cm) iw ED Course: 19:40 Patient arrived in ED. wm 20:06 Triage completed. iw 20:57 Rajiv Bernal, RN is Primary Nurse. em 20:57 Patient has correct armband on for positive identification. Call light in reach. em 21:00 Kaitlynn Latham FNP-C is PHCP. kb 21:00 Krista Rosa is Attending Physician. kb 21:09 No provider procedures requiring assistance completed. Patient did not have IV access em during this emergency room visit. Administered Medications: No medications were administered Outcome: 21:04 Discharge ordered by MD. kb 21:09 Discharged to home ambulatory. em 21:09 Condition: stable 21:09 Discharge instructions given to patient, Instructed on discharge instructions, follow up and referral plans. medication usage, Demonstrated understanding of instructions, follow-up care, medications, wound care, Prescriptions given X 1. 21:27 Patient left the ED. em Signatures: Kaitlynn Latham FNP-C FNP-Ckb Munoz, Edgar, RN RN Michela Good RN RN Nidia Tejada Corrections: (The following items were deleted from the chart) 20:06 20:06 PSHx: None; iw iw 20:07 20:03 BP 130 / 81; Resp 16bpm; Spontaneous; 108.86 kg; Height 6 ft. 2 in.; BMI: 30.8; iwiw
[2021-04-01 21:34] VITALS: BP 130/81; TEMP 98; O2SAT 97
== END 2021-04-01 21:27 | disposition home or self-care (01) ==
LOC: ER 19:35
DX: L08.9 Local infection of the skin and subcutaneous tissue, unspecified (principal); F17.210 Nicotine dependence, cigarettes, uncomplicated
CPT/HCPCS: 99282